=== PATIENT | male | born 1960 | race African-American/Black ===

== ENCOUNTER → 2016-06-14 | Outpatient (CLI) | payer OTHER ==
--- NOTE | ~2016-06-14 | CT138 ---
[facility] A Service of [facility] & [facility] [place] RADIOLOGY TEXT RESULTS PATIENT: JESSE FULLER LOCATION: [facility] : 60 UNIT #: [id number] AGE: [address]: Leah Diaz MD SEX: M ORDER DR: [id number] [facility] [address] [place], [place] [address] [id number] O MR#: [id number] Acc #: [id number] NAME: JESSE FULLER : 1960 SEX: M STUDY DATE/TIME: 06/14/2016 15:22 UNIT: [facility] ROOM: STUDY DESCRIPTION: CT Lung screening initial Attending Physician: Leah Diaz M.D. Referring Physician: Leah Diaz M.D. Ordering Physician: Leah Diaz M.D. Primary Care Physician: [facility]. MEDICAL IMAGING REPORT This report is preliminary unless electronic signature is present EXAM CT lung cancer screening INDICATION Lung cancer screening 39 pack/year smoking history. PROCEDURE Unenhanced low-dose CT of the chest performed per lung cancer screening protocol. The CTDI is 2.95 mGy. Total DLP 129 mGy-cm. This CT exam was performed with one or more of the following radiation dose reduction techniques: automatic exposure control, adjustment of mA and/or kV according to patient size, and iterative reconstruction. COMPARISON None. FINDINGS There is severe emphysema, biapical scarring, and bullous change. Left lower lobe scarring. No suspicious pulmonary nodule. No adenopathy. There is a 1.5 cm cyst at the dome of the liver. No acute findings are seen in the included upper abdomen. No aggressive-appearing bone lesion. IMPRESSION 1. Significant emphysema. 2. No suspicious pulmonary nodule. Lung-RADS Category: 1, negative. Per the ACR lung-RADS recommendations, suggest patient continue with yearly low-dose lung cancer screening. STAT * RESULT Dictated by... [facility]. [facility] A Service of [facility] & [facility] RADIOLOGY TEXT RESULTS PATIENT: JESSE FULLER LOCATION: [facility] : 60 UNIT #: [id number] AGE: [address]: Leah Diaz MD SEX: M ORDER DR: Jose Valderrama M.D. THIS IS AN ELECTRONICALLY VERIFIED REPORT Jose Valderrama M.D. at 06/15/2016 2:17 PM SHAHNAZ/jona TD: 06/15/2016 10:13 JOB #: [id number] MEDICAL IMAGING REPORT Page 1 of 1 COPY
== END | disposition home or self-care (01) ==
LOC: CCAT 15:09
DX: F17.210 Nicotine dependence, cigarettes, uncomplicated (principal); J43.9 Emphysema, unspecified
CPT/HCPCS: G0297